=== PATIENT | male | born 1970 ===

== ENCOUNTER 2018-05-04 06:57 | Day surgery (SDC) | payer BC, MEDICAID ==
[2018-04-29 11:27] VITALS: BMI 25.1
[~2018-05-04 06:57] MED LIST: LACTATED RINGERS 1,000 ML IV SCH
[2018-05-04 07:24] VITALS: TEMP 98.4
[2018-05-04] MEDS ORDERED: LIDOCAINE 1% INJ 10MG/ML (20 ML MDV) ONE (07:46)
[2018-05-04] MEDS ORDERED: PROPOFOL 10 MG/ML 20 ML VIAL IV ONE (07:46)
--- NOTE | 2018-05-04 07:59 | P.GSHP ---
History of Present Illness H&P Date: 05/04/18 Chief Complaint: Screening colonoscopy This is a 48-year-old male referred from Dr. Matthews. Patient presents today for screening colonoscopy. Past Medical History Past Medical History: Hyperlipidemia History of Any Multi-Drug Resistant Organisms: None Reported Additional Past Surgical History / Comment(s): Ankle surgery. Past Anesthesia/Blood Transfusion Reactions: No Reported Reaction Smoking Status: Current some day smoker - Past Family History Mother Additional Family Medical History / Comment(s): Brain Aneurysm Medications and Allergies Home Medications Medication Instructions Recorded Confirmed Type Atorvastatin [Lipitor] 20 mg PO HS 04/29/18 04/29/18 History Cyanocobalamin (Vitamin B-12) 2,500 mcg PO DAILY 04/29/18 04/29/18 History [Vitamin B12] Allergies Allergy/AdvReac Type Severity Reaction Status Date / Time No Known Allergies Allergy Verified 04/29/18 11:17 Surgical - Exam Vital Signs Temp Pulse Resp BP Pulse Ox 98.4 F 62 14 115/72 98 05/04/18 07:23 05/04/18 07:23 05/04/18 07:23 05/04/18 07:23 05/04/18 07:23 - General well developed, well nourished, no distress - Eyes PERRL - ENT normal pinna - Neck no masses - Respiratory normal expansion - Cardiovascular Rhythm: regular - Abdomen Abdomen: soft, non tender Assessment and Plan Assessment: We'll perform screening colonoscopy.
--- NOTE | 2018-05-04 08:08 | P.OP ---
Date of Procedure: 05/04/18 Preoperative Diagnosis: Screening colonoscopy Postoperative Diagnosis: Normal colon Procedure(s) Performed: Colonoscopy Anesthesia: MAC Surgeon: Cyrus Portillo Pathology: none sent Condition: stable Disposition: PACU Description of Procedure: PROCEDURE: The patient was placed on the endoscopy table in the lateral position. Digital rectal examination was performed which revealed no abnormalities. The prostate was symmetrical without nodules. Flexible colonoscope was then placed in the patient's anus and passed throughout the entire colon. The ileocecal valve was visualized. The cecum, ascending, transverse, descending and sigmoid colon were normal. The rectum was normal as well. There were no masses, polyps or diverticula noted in the entire colon. SUMMARY OF FINDINGS: Normal colonoscopy.
[2018-05-04 08:23] VITALS: RESP 18
[2018-05-04 08:41] VITALS: BP 113/78; PULSE 55
== END 2018-05-04 08:56 | disposition home or self-care (01) ==
LOC: ORWHC2ENDO 06:57 → EDBD 06:57 → ORWHC2ENDO 08:56
PROVIDERS: ATTEND Surgery
DX: Z12.11 Encounter for screening for malignant neoplasm of colon (principal); E78.5 Hyperlipidemia, unspecified; F17.200 Nicotine dependence, unspecified, uncomplicated; Z79.899 Other long term (current) drug therapy
CPT/HCPCS: J2001; J2704; G0121; 45378